=== PATIENT | male | born 1965 | race Two or more races ===

== ENCOUNTER → 2022-03-09 | Outpatient (CLI) | payer MEDICAID ==
[2022-03-09 13:19] LABS: Basophils # (auto) 0 10 ^3/uL (0-0.2); Basophils % (auto) 0.3 % (0.0-2.0); Eosinophils # (auto) 0.1 10 ^3/uL (0-0.8); Eosinophils % (auto) 1.3 % (0.0-7.0); Hematocrit 49.2 % (41.0-53.0); Hemoglobin 16.8 g/dL (13.5-17.5); Lymphocytes % (auto) 23.6 % (10.0-50.0); Mean Corpuscular Hemoglobin 31.5 pg (28.0-32.0); Mean Corpuscular Hgb Conc. 34.1 g/dL (32.0-36.0); Mean Corpuscular Volume 92.2 fL (80.0-100.0); Monocytes # (auto) 0.5 10 ^3/uL (0-1.3); Monocytes % (auto) 6.2 % (0.0-12.0); Neutrophils # (auto) 5.9 10 ^3/uL (1.6-8.6); Neutrophils % (auto) 68.6 % (37.0-80.0); Nucleated Red Blood Cells % 0.1 %; Red Blood Cells 5.34 10^6/uL (4.5-5.90); Red Cell Distribution Width 15.5 % (11.8-14.3); Urine Bacteria FEW /hpf (None Seen); Urine WBC 1 /hpf (0 - 3); White Blood Cell 8.7 10^3/uL (4.4-10.8)
[2022-03-09 13:24] LABS: Urine Blood 1+ /uL (Negative); Urine Specific Gravity 1.015 (1.001-1.035)
[2022-03-09 14:00] LABS: Potassium 4.6 mmol/L (3.5-5.1)
[2022-03-09 14:07] LABS: Albumin 3.8 g/dL (3.4-5.0); BUN/Creatinine Ratio 15.4; Bilirubin, Total 0.9 mg/dL (0.2-1.0); Calcium 9.5 mg/dL (8.5-10.1); Total Protein 7.4 g/dL (6.4-8.2); Uric Acid 4.4 mg/dL (3.5-7.2)
== END | disposition home or self-care (01) ==
LOC: LAB 12:55
PROVIDERS: ATTEND Internal Medicine
DX: I10 Essential (primary) hypertension (principal); E78.5 Hyperlipidemia, unspecified; M10.9 Gout, unspecified
CPT/HCPCS: 36415; 80053; 80061; 81001; 82043; 83036; 84439; 84443; 84550; 85025; 86803

== ENCOUNTER → 2022-06-20 | Outpatient (CLI) | payer MEDICAID ==
[2022-06-20 14:13] LABS: Calcium 9.4 mg/dL (8.5-10.1)
[2022-06-20 14:18] LABS: BUN/Creatinine Ratio 12.2; Bilirubin, Total 1.3 mg/dL (0.2-1.0); Total Protein 7.6 g/dL (6.4-8.2)
[2022-06-20 14:52] LABS: Urine Bacteria FEW /hpf (None Seen); Urine Blood TRACE /uL (Negative); Urine Specific Gravity 1.018 (1.001-1.035); Urine WBC 1 /hpf (0 - 3)
[2022-06-20 15:21] LABS: Basophils # (auto) 0 10 ^3/uL (0-0.2); Basophils % (auto) 0.5 % (0.0-2.0); Eosinophils # (auto) 0.1 10 ^3/uL (0-0.8); Eosinophils % (auto) 1.3 % (0.0-7.0); Hematocrit 44.1 % (41.0-53.0); Hemoglobin 15.6 g/dL (13.5-17.5); Lymphocytes # (auto) 1.9 10 ^3/uL (0.4-5.4); Lymphocytes % (auto) 30.9 % (10.0-50.0); Mean Corpuscular Hemoglobin 33.1 pg (28.0-32.0); Mean Corpuscular Hgb Conc. 35.4 g/dL (32.0-36.0); Mean Corpuscular Volume 93.4 fL (80.0-100.0); Monocytes # (auto) 0.5 10 ^3/uL (0-1.3); Monocytes % (auto) 7.6 % (0.0-12.0); Neutrophils # (auto) 3.6 10 ^3/uL (1.6-8.6); Neutrophils % (auto) 59.7 % (37.0-80.0); Nucleated Red Blood Cells % 0.1 %; Red Blood Cells 4.73 10^6/uL (4.5-5.90); Red Cell Distribution Width 14.5 % (11.8-14.3); White Blood Cell 6.1 10^3/uL (4.4-10.8)
== END | disposition home or self-care (01) ==
LOC: LAB 13:30
PROVIDERS: ATTEND Internal Medicine
DX: I12.9 Hypertensive chronic kidney disease with stage 1 through stage 4 chronic kidney disease, or unspecified chronic kidney disease (principal); N18.2 Chronic kidney disease, stage 2 (mild); R73.03 Prediabetes; E78.5 Hyperlipidemia, unspecified
CPT/HCPCS: 36415; 80053; 80061; 81001; 82570; 83036; 85025

== ENCOUNTER 2022-12-08 20:06 | Emergency (ER) | payer MEDICAID, OTHER ==
[~2022-12-08] VITALS: Ht 172.7 cm; Wt 113.9 kg
[2022-12-08 22:27] VITALS: BP 133/77; PULSE 82; RESP 18; TEMP 98; O2SAT 96
[2022-12-08] MEDS ORDERED: IBUP-1455 PO ×2 (22:42)
[2022-12-08] MEDS ORDERED: ACET650T12 PO (23:06)
== END 2022-12-08 23:19 | disposition home or self-care (01) ==
LOC: ER 20:06
DX: M79.631 Pain in right forearm (principal); I10 Essential (primary) hypertension; E78.5 Hyperlipidemia, unspecified; M10.9 Gout, unspecified; Z79.899 Other long term (current) drug therapy
CPT/HCPCS: 73090

== ENCOUNTER 2023-12-02 10:40 | Inpatient (IN) | payer MEDICAID ==
[~2023-12-02] VITALS: Ht 170.2 cm; Wt 118.2 kg
[~2023-12-02 10:40] MED LIST: ACET650T12 PO
[2023-12-02 11:48] LABS: Urine Bacteria None Seen /hpf (None Seen); Urine WBC None Seen /hpf (0 - 3)
[2023-12-02 11:52] LABS: Basophils # (auto) 0 10 ^3/uL (0-0.2); Basophils % (auto) 0.2 % (0.0-2.0); Eosinophils # (auto) 0.1 10 ^3/uL (0-0.8); Eosinophils % (auto) 0.7 % (0.0-7.0); Hematocrit 43.2 % (41.0-53.0); Hemoglobin 14.8 g/dL (13.5-17.5); Lymphocytes # (auto) 1.6 10 ^3/uL (0.4-5.4); Mean Corpuscular Hgb Conc. 34.3 g/dL (32.0-36.0); Mean Corpuscular Volume 93.3 fL (80.0-100.0); Neutrophils # (auto) 7.1 10 ^3/uL (1.6-8.6); Neutrophils % (auto) 73.1 % (37.0-80.0); Nucleated Red Blood Cells % 0.1 %; Red Blood Cells 4.64 10^6/uL (4.5-5.90); Red Cell Distribution Width 14.7 % (11.8-14.3); White Blood Cell 9.7 10^3/uL (4.4-10.8)
[2023-12-02 12:09] LABS: Alanine Aminotransferase 30 U/L (7-40); Albumin 4.5 g/dL (3.2-4.8); Alkaline Phosphatase 131 U/L (46-116); Anion Gap 8 (5-15); Aspartate Aminotransferase 15 U/L (13-40); Blood Urea Nitrogen 20 mg/dL (9-23); Carbon Dioxide 26 mmol/L (20-30); Chloride 103 mmol/L (98-107); Glucose 107 mg/dL (74-106); Potassium 4.9 mmol/L (3.5-5.1); Sodium 137 mmol/L (136-145)
[2023-12-02 12:10] LABS: Bilirubin, Total 0.9 mg/dL (0.2-1.0); Total Protein 7.2 g/dL (5.7-8.2)
[2023-12-02 12:12] LABS: Urine Blood 1+ /uL (Negative); Urine Clarity Clear (Clear); Urine Color Light-Yellow (Yellow); Urine Protein, UAD Negative (Negative); Urine Specific Gravity 1.017 (1.001-1.035); Urine Urobilinogen Normal (Negative)
[2023-12-02] MEDS ORDERED: CIPROFLOXACIN 400MG/200ML 200 ML IV ONE (12:45)
[2023-12-02 12:50] VITALS: PULSE 74; RESP 16; O2SAT 97
[2023-12-02] MEDS: cefTRIAXone 1GM/50ML D5W 50 ML IV ONE (13:00)
[2023-12-02] MEDS: SODIUM CHLORIDE 0.9% 500 ML IV ONE (13:00)
[2023-12-02] MEDS: KETOROLAC TROMETH 30 MG/ML 1ML VIAL IV ONE (13:01)
[2023-12-02] MEDS: metroNIDAZOLE 500MG/100ML 100 ML IV ONE (13:56)
[2023-12-02] MEDS ORDERED: ONDANSETRON HCL 4 MG/2 ML VIAL IV PRN (16:15)
[2023-12-02] MEDS ORDERED: MORPHINE SULFATE INJ 2 MG/ml SYRG IV PRN (16:15)
[2023-12-02] MEDS ORDERED: ACETAMINOPHEN 325 MG TAB PO PRN (16:15)
[2023-12-02] MEDS: HYDROcodone-ACET 5/325MG TAB PO PRN (17:37)
[2023-12-02 20:00] VITALS: PULSE 66; RESP 20; O2SAT 96
[2023-12-02 21:00] VITALS: BP 105/71; PULSE 94; RESP 19; TEMP 97.6; O2SAT 94
[2023-12-02] MEDS: metroNIDAZOLE 500MG/100ML 100 ML IV SCH (21:58)
[2023-12-03 01:00] VITALS: BP 114/70; PULSE 86; RESP 20; TEMP 98; O2SAT 96
[2023-12-03 05:00] VITALS: BP 114/68; PULSE 78; RESP 20; TEMP 97.9; O2SAT 97
[2023-12-03 06:14] LABS: Chloride 104 mmol/L (98-107); Potassium 4.6 mmol/L (3.5-5.1); Sodium 138 mmol/L (136-145)
[2023-12-03 06:15] LABS: Anion Gap 8 (5-15); Calcium 9.2 mg/dL (8.7-10.4); Carbon Dioxide 26 mmol/L (20-30)
[2023-12-03 06:17] LABS: Basophils # (auto) 0 10 ^3/uL (0-0.2); Basophils % (auto) 0.4 % (0.0-2.0); Eosinophils # (auto) 0.1 10 ^3/uL (0-0.8); Eosinophils % (auto) 1.3 % (0.0-7.0); Hematocrit 38.4 % (41.0-53.0); Hemoglobin 13.5 g/dL (13.5-17.5); Lymphocytes # (auto) 1.6 10 ^3/uL (0.4-5.4); Lymphocytes % (auto) 21.6 % (10.0-50.0); Mean Corpuscular Hemoglobin 32.6 pg (28.0-32.0); Mean Corpuscular Hgb Conc. 35.2 g/dL (32.0-36.0); Mean Corpuscular Volume 92.5 fL (80.0-100.0); Monocytes # (auto) 0.6 10 ^3/uL (0-1.3); Monocytes % (auto) 8.6 % (0.0-12.0); Neutrophils % (auto) 68.1 % (37.0-80.0); Nucleated Red Blood Cells % 0.1 %; Red Blood Cells 4.15 10^6/uL (4.5-5.90); White Blood Cell 7.4 10^3/uL (4.4-10.8)
[2023-12-03 06:20] LABS: BUN/Creatinine Ratio 13.4 (10.0-20.0); Blood Urea Nitrogen 17 mg/dL (9-23); Glucose 91 mg/dL (74-106)
[2023-12-03 08:45] VITALS: BP 104/60; PULSE 70; RESP 17; TEMP 97.4; O2SAT 97
[2023-12-03] MEDS: cefTRIAXone 1GM/50ML D5W 50 ML IV SCH (10:03)
[2023-12-03 13:00] VITALS: BP 106/68; PULSE 78; RESP 17; TEMP 97.5; O2SAT 93
[2023-12-03 16:17] VITALS: BP 106/68; PULSE 58; RESP 16; TEMP 97.7; O2SAT 97
[2023-12-03] MEDS ORDERED: ASPI-325 PO (16:57)
[2023-12-03] MEDS ORDERED: EZET-10 PO (16:57)
[2023-12-03] MEDS ORDERED: AMLO1TAB23 PO (16:57)
[2023-12-03] MEDS ORDERED: ATOR40TA52 PO (16:57)
[2023-12-03] MEDS ORDERED: LISI40TA16 PO (16:57)
[2023-12-03] MEDS ORDERED: ALLO300T2 PO (16:57)
[2023-12-03 21:04] VITALS: BP 118/71; PULSE 84; RESP 20; TEMP 97.8; O2SAT 94
[2023-12-03] MEDS: ATORVASTATIN 20 MG TAB PO SCH (21:53)
[2023-12-04 01:06] VITALS: BP 120/70; PULSE 77; RESP 21; TEMP 97.6; O2SAT 98
[2023-12-04 05:00] VITALS: BP 112/73; PULSE 79; RESP 20; TEMP 97.8; O2SAT 95
[2023-12-04 06:44] LABS: Basophils # (auto) 0 10 ^3/uL (0-0.2); Basophils % (auto) 0.5 % (0.0-2.0); Eosinophils # (auto) 0.1 10 ^3/uL (0-0.8); Eosinophils % (auto) 2.4 % (0.0-7.0); Hematocrit 38.5 % (41.0-53.0); Hemoglobin 13.5 g/dL (13.5-17.5); Lymphocytes # (auto) 1.6 10 ^3/uL (0.4-5.4); Mean Corpuscular Hemoglobin 32.2 pg (28.0-32.0); Mean Corpuscular Hgb Conc. 35.1 g/dL (32.0-36.0); Mean Corpuscular Volume 91.7 fL (80.0-100.0); Monocytes # (auto) 0.5 10 ^3/uL (0-1.3); Monocytes % (auto) 8.3 % (0.0-12.0); Neutrophils # (auto) 3.2 10 ^3/uL (1.6-8.6); Neutrophils % (auto) 59.8 % (37.0-80.0); Nucleated Red Blood Cells % 0.2 %; Red Cell Distribution Width 14.7 % (11.8-14.3); White Blood Cell 5.4 10^3/uL (4.4-10.8)
[2023-12-04 06:52] LABS: Anion Gap 8 (5-15); Carbon Dioxide 27 mmol/L (20-30); Chloride 103 mmol/L (98-107); Potassium 4.2 mmol/L (3.5-5.1); Sodium 138 mmol/L (136-145)
[2023-12-04 06:53] LABS: Calcium 9.2 mg/dL (8.7-10.4)
[2023-12-04 06:58] LABS: BUN/Creatinine Ratio 10.4 (10.0-20.0); Blood Urea Nitrogen 12 mg/dL (9-23); Glucose 91 mg/dL (74-106)
[2023-12-04 08:57] VITALS: BP 114/78; PULSE 77; RESP 16; TEMP 98.3; O2SAT 93
[2023-12-04] MEDS: ASPirin 81 mg TAB PO SCH (09:34)
[2023-12-04] MEDS: ALLOPURINOL 100 MG TAB PO SCH (09:34)
[2023-12-04] MEDS: LISINOPRIL 20 MG TAB PO SCH (09:36)
[2023-12-04] MEDS: amLODIPine BESYLATE 5 MG TAB PO SCH (09:36)
[2023-12-04 12:54] VITALS: BP 104/68; PULSE 71; RESP 18; TEMP 98.4; O2SAT 95
[2023-12-04] MEDS ORDERED: CIPR-173 PO (14:09)
[2023-12-04] MEDS ORDERED: METR-344 PO (14:09)
[2023-12-04 17:06] VITALS: BP 113/68; PULSE 75; RESP 18; TEMP 98.6; O2SAT 95
== END 2023-12-04 17:00 | disposition home or self-care (01) | DRG 244 ==
LOC: ER 10:40 → OVERFLOW 16:14 → EAST 17:00
PROVIDERS: ADMIT Internal Medicine Geriatric Medicine; ATTEND Emergency Medicine
DX: K57.92 Diverticulitis of intestine, part unspecified, without perforation or abscess without bleeding (principal); N17.0 Acute kidney failure with tubular necrosis; E78.5 Hyperlipidemia, unspecified; M10.9 Gout, unspecified; K44.9 Diaphragmatic hernia without obstruction or gangrene; I12.9 Hypertensive chronic kidney disease with stage 1 through stage 4 chronic kidney disease, or unspecified chronic kidney disease; N18.2 Chronic kidney disease, stage 2 (mild); Z79.1 Long term (current) use of non-steroidal anti-inflammatories (NSAID); Z87.19 Personal history of other diseases of the digestive system; Z79.899 Other long term (current) drug therapy
CPT/HCPCS: 36415; 74176; 80048; 80053; 81001; 83605; 85025; 96365; 96367; 96375; G0378; J1885; J3490

== ENCOUNTER → 2024-01-24 | Outpatient (CLI) | payer MEDICAID ==
[~2024-01-24] MED LIST changes: -ACET650T12 PO; +ALLO300T2 PO; +AMLO1TAB23 PO; +ASPI-325 PO; +ATOR40TA52 PO; +CIPR-173 PO; +EZET-10 PO; +LISI40TA16 PO; +METR-344 PO
[2024-01-24 12:29] LABS: Urine Bacteria None Seen /hpf (None Seen)
[2024-01-24 12:55] LABS: Urine Blood Negative /uL (Negative); Urine Clarity Clear (Clear); Urine Color Yellow (Yellow); Urine Hyaline Cast FEW /lpf (0 - 2); Urine Mucus FEW (None Seen); Urine Protein, UAD TRACE (Negative); Urine Specific Gravity 1.021 (1.001-1.035); Urine Urobilinogen Normal (Negative); Urine WBC <1 /hpf (0 - 3); Urine pH 5.5 (5.0-9.0)
== END | disposition home or self-care (01) ==
LOC: LAB 12:26
PROVIDERS: ATTEND Internal Medicine
DX: R82.90 Unspecified abnormal findings in urine (principal)
CPT/HCPCS: 81001

== ENCOUNTER → 2024-04-17 | Outpatient (CLI) | payer MEDICAID ==
[2024-04-17 13:03] LABS: Urine Bacteria None Seen /hpf (None Seen)
[2024-04-17 13:11] LABS: Urine Blood TRACE /uL (Negative); Urine Clarity Clear (Clear); Urine Color Light-Yellow (Yellow); Urine Protein, UAD Negative (Negative); Urine Specific Gravity 1.009 (1.001-1.035); Urine Urobilinogen Normal (Negative); Urine WBC 1 /hpf (0 - 3); Urine pH 5.5 (5.0-9.0)
[2024-04-17 13:45] LABS: Prostate Specific Antigen 0.89 ng/mL (0.0-4.0)
[2024-04-17 13:48] LABS: Free T3 3.88 pg/mL (2.3-4.2)
[2024-04-17 13:49] LABS: Free T4 (Free Thyroxine) 1.13 ng/dL (0.89-1.76)
== END | disposition home or self-care (01) ==
LOC: LAB 12:53
PROVIDERS: ATTEND Internal Medicine
DX: I12.9 Hypertensive chronic kidney disease with stage 1 through stage 4 chronic kidney disease, or unspecified chronic kidney disease (principal); N18.2 Chronic kidney disease, stage 2 (mild); Z87.19 Personal history of other diseases of the digestive system; Z86.0101 Personal history of adenomatous and serrated colon polyps
CPT/HCPCS: 36415; 81001; 84153; 84439; 84443; 84481

== ENCOUNTER → 2024-05-29 | Outpatient (CLI) | payer MEDICAID ==
[2024-05-29 10:16] LABS: Chloride 105 mmol/L (98-107); Potassium 4.5 mmol/L (3.5-5.1); Sodium 138 mmol/L (136-145)
[2024-05-29 10:17] LABS: Anion Gap 4 (5-15); Calcium 10.2 mg/dL (8.7-10.4); Carbon Dioxide 29 mmol/L (20-31)
[2024-05-29 10:22] LABS: BUN/Creatinine Ratio 11.5 (10.0-20.0); Blood Urea Nitrogen 15 mg/dL (9-23); Glucose 105 mg/dL (74-106)
== END | disposition home or self-care (01) ==
LOC: LAB 09:14
PROVIDERS: ATTEND Internal Medicine
DX: I12.9 Hypertensive chronic kidney disease with stage 1 through stage 4 chronic kidney disease, or unspecified chronic kidney disease (principal); N18.2 Chronic kidney disease, stage 2 (mild)
CPT/HCPCS: 36415; 80048

== ENCOUNTER 2024-06-28 07:25 | Day surgery (SDC) | payer MEDICAID ==
[2024-06-25 15:32] LABS: Urine Bacteria None Seen /hpf (None Seen)
[2024-06-25 15:37] LABS: Basophils # (auto) 0.1 10 ^3/uL (0-0.2); Basophils % (auto) 0.7 % (0.0-2.0); Eosinophils # (auto) 0.2 10 ^3/uL (0-0.8); Eosinophils % (auto) 2.5 % (0.0-7.0); Hematocrit 46.8 % (41.0-53.0); Hemoglobin 15.6 g/dL (13.5-17.5); Lymphocytes % (auto) 23.1 % (10.0-50.0); Mean Corpuscular Hemoglobin 30.7 pg (28.0-32.0); Mean Corpuscular Hgb Conc. 33.3 g/dL (32.0-36.0); Mean Corpuscular Volume 92.3 fL (80.0-100.0); Monocytes # (auto) 0.7 10 ^3/uL (0-1.3); Monocytes % (auto) 8.4 % (0.0-12.0); Neutrophils # (auto) 5.6 10 ^3/uL (1.6-8.6); Neutrophils % (auto) 65.3 % (37.0-80.0); Platelet Count (auto) 257 10^3/uL (140-450); Red Blood Cells 5.08 10^6/uL (4.5-5.90); Red Cell Distribution Width 14.1 % (11.8-14.3); White Blood Cell 8.6 10^3/uL (4.4-10.8)
[2024-06-25 15:43] LABS: Urine Blood Negative /uL (Negative); Urine Clarity Clear (Clear); Urine Color Light-Yellow (Yellow); Urine Protein, UAD Negative (Negative); Urine Specific Gravity 1.012 (1.001-1.035); Urine Squamous Epithelial Cell None Seen /hpf (<5); Urine Urobilinogen Normal (Negative)
[2024-06-25 15:51] LABS: INR 0.97 (0.9-1.15); Partial Thromboplastin Time 29.5 SEC (24.5-34.5); Prothrombin Time 10.3 sec (9.3-11.8)
[2024-06-25 16:23] LABS: Alanine Aminotransferase 38 U/L (7-40); Albumin 4.7 g/dL (3.2-4.8); Anion Gap 7 (5-15); Aspartate Aminotransferase 26 U/L (13-40); BUN/Creatinine Ratio 9.2 (10.0-20.0); Bilirubin, Total 0.9 mg/dL (0.2-1.0); Blood Urea Nitrogen 11 mg/dL (9-23); Calcium 10.3 mg/dL (8.7-10.4); Carbon Dioxide 29 mmol/L (20-31); Chloride 103 mmol/L (98-107); Glucose 101 mg/dL (74-106); Potassium 4.4 mmol/L (3.5-5.1); Sodium 139 mmol/L (136-145)
[2024-06-25 16:24] LABS: Total Protein 6.8 g/dL (5.7-8.2)
[2024-06-25 16:32] LABS: Alkaline Phosphatase 135 U/L (46-116)
[~2024-06-28] VITALS: Ht 170.2 cm; Wt 117.9 kg
[~2024-06-28 07:25] MED LIST changes: -CIPR-173 PO; -METR-344 PO; +OMEG-20 PO
[2024-06-28] MEDS ORDERED: ONDANSETRON HCL 4 MG/2 ML VIAL ONE (08:57)
[2024-06-28] MEDS ORDERED: PROPOFOL 10 MG/ML 20 ML IV ONE (08:57)
[2024-06-28] MEDS ORDERED: GLYCOPYRROLATE 0.2 MG/ML 1ML VIAL ONE (08:57)
[2024-06-28] MEDS ORDERED: fentaNYL CITRATE 100 MCG/2 ML VL ONE (08:57)
[2024-06-28] MEDS ORDERED: MIDAZOLAM HCL 2MG/2ML 2ml VIAL (1mg/ml) ONE (08:57)
[2024-06-28] MEDS ORDERED: LIDOCAINE 2% (LOCAL ANESTH.) PF 5ml SDV ONE (08:57)
[2024-06-28] MEDS ORDERED: KETAMINE 50mg/ML 1ml syringe ONE ×2 (10:04→11:17)
[2024-06-28 10:25] VITALS: PULSE 100; RESP 15; TEMP 97.7; O2SAT 96
[2024-06-28 10:42] VITALS: PULSE 89; RESP 18; O2SAT 96
[2024-06-28 11:05] VITALS: PULSE 92; RESP 17; O2SAT 95
[2024-06-28 11:20] VITALS: BP 122/76; PULSE 90; RESP 15; O2SAT 95
--- NOTE | 2024-06-28 18:40 | DVHOP2 ---
Operative Report DATE OF OPERATION: 06/28/24 PROCEDURE: Upper Endoscopy with biopsy and dilate esophagus unguided. PREOPERATIVE INDICATION: The patient is a 59 -year-old male undergoing endoscopy for chronic GERD and some dysphagia POSTOPERATIVE DIAGNOSES: 1. Patient had a 3 cm sliding-type hiatal hernia with a Schatzki's ring that was dilated with Burciaga number 48 2. Mild gastroduodenitis otherwise normal examination up to the 2nd part of the duodenum PROCEDURE PERFORMED BY: Carlos Florentino GI NURSE: Alicia SCOPE: Olympus videoendoscope. ASA CLASS: 3. PREOPERATIVE MEDICATIONS: Mac sedation, Dr. Saldana PROCEDURE IN DETAIL: After obtaining an informed consent, the patient was placed on left lateral decubitus position. The patient was then sedated with the above medications. A bite block was placed between his teeth. The endoscope was then passed through the oropharynx, into the esophagus, and through the stomach and pylorus up to the second and third part of the duodenum. The endoscope was then withdrawn. The 2nd and 3rd part of the duodenum were normal.and the duodenal bulb showed duodenitis Duodenal biopsies were obtained Pre-pyloric area and antrum showed mild antral gastritis. Gastric biopsies were obtained. On retroflexion the fundus cardia and angularis were normal. The endoscope was then withdrawn into the distal esophagus Patient had a 2-3 cm sliding-type hiatal hernia with a Schatzki's ring. The remaining distal and proximal esophagus were unremarkable Subsequently a Burciaga dilator number 48 was passed through the distal esophagus with minimal resistance. Repeat endoscopy confirmed adequate dilatation there was minimal mucosal separation. GE junction biopsies were obtained There was no bleeding. The patient tolerated the procedure well without difficulty. COMPLICATIONS : None SPECIMENS: Duodenal biopsies Gastric biopsies GE junction biopsies DISPOSITION: Stable D/C to home PLAN: 1. Await for biopsy result 2. Will place pt on Protonix 40 mg bid 3. Resume full liquid diet advance to soft mechanical 4. DC aspirin NSAIDs smoking alcohol for one week 5. Outpatient follow up with me in 2-4 weeks to review results and discuss further management CARLOS FLORENTINO MD Jun 28, 2024 18:40
--- NOTE | 2024-06-28 18:45 | DVHOP2 ---
Operative Report DATE OF OPERATION: 06/28/24 PROCEDURE: Colonoscopy with hot snare polypectomy and cold biopsy. PREOPERATIVE INDICATION: The patient is a 59 -year-old male undergoing colonoscopy for surveillance with personal history of colon polyps POSTOPERATIVE DIAGNOSES: 1. There was area of ulceration over the ileocecal valve and also the proximal ascending colon which was suspicious for either stercoral ulceration or likely a segmental ischemic colitis 2. Patient had a 1 cm ascending colon polyp that was seen and removed by snare polypectomy and the specimens were retrieved 3. Patient had a 1 cm descending colon polyp that was seen and removed by snare polypectomy and the specimens were retrieved 4. There were a couple of small benign-appearing rectosigmoid polyps that were seen and removed by snare polypectomy and the specimens were retrieved 5. Trace internal hemorrhoids otherwise essentially completely normal colonoscopy examination up to the cecum PROCEDURE PERFORMED BY: Carlos Mcconnell M.D. SCOPE: Olympus videocolonoscope. ASA CLASS: 3. PREOPERATIVE MEDICATIONS: Dr. Les Montemayor PROCEDURE IN DETAIL: After obtaining an informed consent, the patient was placed on left lateral decubitus position. He was then sedated with the above medications. A rectal examination was performed that was normal. The colonoscope was then passed through the anus into the rectosigmoid and through the descending, transverse, and ascending colon up to the cecum with visualization of the appendiceal orifice, base of the cecum and the ile ocecal valve. The colonoscope was then withdrawn. Patient had an area of extensive ulceration of the ileocecal valve and some in the proximal ascending colon Multiple biopsies were obtained. This appeared to be likely related to ischemic colitis or stercoral colitis. There was a 1 cm benign-appearing ascending colon polyp that was seen and removed by hot snare polypectomy There was a 1 cm benign-appearing descending colon polyp that was seen and removed by hot snare polypectomy There were two or three benign-appearing rectosigmoid polyps that were seen and removed by hot snare polypectomy or by cold biopsy forceps On retroflexion and straight on view the patient had trace internal hemorrhoids. The patient tolerated the procedure well without difficulty. WITHDRAWAL TIME: 14 minutes QUALITY OF THE PREP: Ashley Bowel Prep score: 9. COMPLICATIONS : None SPECIMENS: Biopsy of ileocecal valve and proximal ascending colon Ascending colon polyp Descending colon polyp Rectosigmoid polyps DISPOSITION: Stable D/C to home PLAN: 1. Repeat colonoscopy base on biopsy result likely in 2-3 years 2. Resume GI soft diet advance as tolerated 3. Increase fluid and fiber intake 4. DC aspirin NSAIDs smoking alcohol 5. Outpatient follow up with me in 4-6 weeks to review results and discuss further management CARLOS MCCONNELL MD Jun 28, 2024 18:45
== END 2024-06-28 12:12 | disposition home or self-care (01) ==
LOC: GI 07:25
PROVIDERS: ATTEND Internal Medicine Gastroenterology
DX: Z12.11 Encounter for screening for malignant neoplasm of colon (principal); D12.2 Benign neoplasm of ascending colon; D12.5 Benign neoplasm of sigmoid colon; D12.4 Benign neoplasm of descending colon; R13.19 Other dysphagia; K22.2 Esophageal obstruction; K44.9 Diaphragmatic hernia without obstruction or gangrene; K64.8 Other hemorrhoids; K21.00 Gastro-esophageal reflux disease with esophagitis, without bleeding; K29.50 Unspecified chronic gastritis without bleeding; F17.200 Nicotine dependence, unspecified, uncomplicated; Z86.0100 Personal history of colon polyps, unspecified; N18.9 Chronic kidney disease, unspecified; Z86.73 Personal history of transient ischemic attack (TIA), and cerebral infarction without residual deficits; M10.9 Gout, unspecified; Z98.890 Other specified postprocedural states
CPT/HCPCS: 36415; 43239; 43450; 45380; 45385; 80053; 81001; 85025; 85610; 85730; 88305; 88312; 88342; J2003; J2250; J2405; J2704; J3010; J7030

== ENCOUNTER 2024-07-11 09:03 | Inpatient (IN) | payer MEDICAID ==
[2024-07-10 14:30] LABS: Urine Bacteria None Seen /hpf (None Seen)
[2024-07-10 14:34] LABS: Basophils # (auto) 0 10 ^3/uL (0-0.2); Basophils % (auto) 0.3 % (0.0-2.0); Eosinophils # (auto) 0.2 10 ^3/uL (0-0.8); Eosinophils % (auto) 1.9 % (0.0-7.0); Hematocrit 46.3 % (41.0-53.0); Hemoglobin 15.5 g/dL (13.5-17.5); Lymphocytes # (auto) 1.9 10 ^3/uL (0.4-5.4); Lymphocytes % (auto) 18.2 % (10.0-50.0); Mean Corpuscular Hemoglobin 30.8 pg (28.0-32.0); Mean Corpuscular Hgb Conc. 33.4 g/dL (32.0-36.0); Mean Corpuscular Volume 92.1 fL (80.0-100.0); Monocytes # (auto) 0.7 10 ^3/uL (0-1.3); Monocytes % (auto) 6.3 % (0.0-12.0); Neutrophils # (auto) 7.8 10 ^3/uL (1.6-8.6); Neutrophils % (auto) 73.3 % (37.0-80.0); Platelet Count (auto) 281 10^3/uL (140-450); Red Blood Cells 5.03 10^6/uL (4.5-5.90); Red Cell Distribution Width 14.5 % (11.8-14.3); White Blood Cell 10.7 10^3/uL (4.4-10.8)
[2024-07-10 14:37] LABS: Urine Blood TRACE /uL (Negative); Urine Clarity Clear (Clear); Urine Color Light-Yellow (Yellow); Urine Protein, UAD Negative (Negative); Urine Specific Gravity 1.011 (1.001-1.035); Urine Squamous Epithelial Cell None Seen /hpf (<5); Urine Urobilinogen Normal (Negative); Urine WBC < 1 /HPF (0-3); Urine pH 5.5 (5.0-9.0)
[2024-07-10 14:49] LABS: INR 0.99 (0.9-1.15); Partial Thromboplastin Time 29.6 SEC (24.5-34.5); Prothrombin Time 10.5 sec (9.3-11.8)
[2024-07-10 15:07] LABS: Alanine Aminotransferase 35 U/L (7-40); Albumin 4.6 g/dL (3.2-4.8); Anion Gap 10 (5-15); Aspartate Aminotransferase 22 U/L (13-40); BUN/Creatinine Ratio 10.6 (10.0-20.0); Blood Urea Nitrogen 14 mg/dL (9-23); Calcium 10.2 mg/dL (8.7-10.4); Carbon Dioxide 27 mmol/L (20-31); Chloride 102 mmol/L (98-107); Potassium 4.3 mmol/L (3.5-5.1); Sodium 139 mmol/L (136-145); Total Protein 6.8 g/dL (5.7-8.2)
[2024-07-10 15:09] LABS: Alkaline Phosphatase 139 U/L (46-116); Glucose 144 mg/dL (74-106)
[~2024-07-11] VITALS: Ht 170.2 cm; Wt 123.0 kg
[2024-07-11] MEDS ORDERED: PROPOFOL 10 MG/ML 20 ML IV ONE ×3 (09:28→10:33)
[2024-07-11] MEDS ORDERED: GLYCOPYRROLATE 0.2 MG/ML 1ML VIAL ONE (09:28)
[2024-07-11] MEDS ORDERED: LIDOCAINE 2% (LOCAL ANESTH.) PF 5ml SDV ONE (09:28)
[2024-07-11] MEDS ORDERED: DexAMETHasone SOD PHOS 10MG/1ML VIAL INJ ONE (09:28)
[2024-07-11] MEDS ORDERED: KETOROLAC TROMETH 30 MG/ML 1ML VIAL ONE (09:28)
[2024-07-11] MEDS ORDERED: ONDANSETRON HCL 4 MG/2 ML VIAL ONE (09:28)
[2024-07-11] MEDS ORDERED: CIPROFLOXACIN 400MG/200ML 200 ML IV ONE (09:35)
--- NOTE | 2024-07-11 10:16 | DVHDS2 ---
New Physician D'charge PN Admitting Diagnosis Admitting Diagnosis BPH Discharge Diagnosis Same Operations or Procedures UroLift prostate implantation Reason(s) For Hospitalization Surgery Hospital Course Patient was brought to the operating room. After administration of anesthesia, he was placed in the lithotomy position. The area of genitalia was prepped and draped in standard surgical and sterile fashion. The 20 F access sheath was introduced into the bladder under direct vision. Bladder was emptied and the Urolift device was introduced. Five implants were permanently placed at the 10 a& 2 O'clock positions near the bladder neck and apical tissue to lift the kissing lateral lobes out of the way and to create a channel in the prostatic urethra and the urethral bladder neck opening. The implants were delivered through a needle that comes out of the Urolift delivery device and into the prostate. Patient tolerated the procedure well. He was awaken and taken to RR in stable condition. All instrument counts were correct at the end of the procedure. Treatment Plan Discharge Condition of Discharge Good Disposition Home Discharge Instructions Diet: Regular Activity: Light activity Activity comment: As tolerated Medications: Given Follow Up Care Follow Up/Referral: Two weeks follow up Discharge Statement: "Patient was advised to return to the ER or call 911 if any headaches, dizziness, shortness of breath, chest pain, abdominal pain, bleeding, fevers, or worsening of medical condition. Patient was counseled about treatment plan, medications, possible side effects, patientverbalized understanding. All questions were answered to the best of my ability. This discharge took greater then 30 minutes in planning, reviewing documentation, counseling the patient, and discussing with other team members." MOSSE RAZO MD Jul 11, 2024 10:16
--- NOTE | 2024-07-11 10:16 | DVHOP2 ---
Operative Report - 2 Report Details Date: 07/11/24 Preop Diagnosis: BPH Postop Diagnosis: Same Surgeon: Moses Razo Anesthesiologist: Fermín [place] CRNA Anesthesia: Mac Consent: The patient was informed of the risks and benefits of the procedure. These include but are not limited to complications of anesthesia, postoperative infection, incomplete relief of symptoms, recurrence of symptoms, damage to blood vessels, nerves and tendons, deep venous thrombosis, pulmonary embolism and possible need for repeat surgery in the future. Indications for Surgery: Patient has symptomatic BPH and has elected to undergo UroLift implants Name of Procedure Performed UroLift prostate implantation Procedure Details Procedure Details: Patient was brought to the operating room. After administration of anesthesia, he was placed in the lithotomy position. The area of genitalia was prepped and draped in standard surgical and sterile fashion. The 20 F access sheath was introduced into the bladder under direct vision. Bladder was emptied and the Urolift device was introduced. 7 implants were permanently placed at the 10 a& 2 O'clock positions near the bladder neck and apical tissue to lift the kissing lateral lobes out of the way and to create a channel in the prostatic urethra and the urethral bladder neck opening. The implants were delivered through a needle that comes out of the Urolift delivery device and into the prostate. Patient tolerated the procedure well. He was awaken and taken to RR in stable condition. All instrument counts were correct at the end of the procedure. Specimen: None Condition Good Disposition Home MOSES RAZO MD Jul 11, 2024 10:16
[2024-07-11 10:49] VITALS: O2SAT 96
[2024-07-11] MEDS ORDERED: hydrALAZINE HCL 20 MG/ML VL IV PRN (11:00)
[2024-07-11] MEDS ORDERED: fentaNYL CITRATE 100 MCG/2 ML VL IV PRN (11:00)
[2024-07-11] MEDS ORDERED: NALOXONE HCL 0.4 MG/ML VIAL IV PRN (11:00)
[2024-07-11] MEDS ORDERED: FLUMAZENIL 0.1 MG/ML INJ 10ML MDV IV PRN (11:00)
[2024-07-11] MEDS ORDERED: ePHEDrine SULFATE 50 MG/ML AMP IV PRN (11:00)
[2024-07-11] MEDS: oxyCODONE HCL 5MG TAB PO PRN (12:53)
[2024-07-11] MEDS: HYDROmorphone HCL 2 MG/ML VL/or syr IV PRN (12:56)
[2024-07-11] MEDS: ONDANSETRON HCL 4 MG/2 ML VIAL IV PRN (14:17)
[2024-07-11] MEDS ORDERED: MORPHINE SULFATE INJ 2 MG/ml SYRG IV PRN ×2 (15:30→16:15)
[2024-07-11] MEDS ORDERED: NITROGLYCERIN 0.4 MG SL TAB SL PRN ×2 (15:30→16:15)
[2024-07-11 17:00] VITALS: BP 129/72; PULSE 93; RESP 18; TEMP 97.9; O2SAT 94
[2024-07-11 20:00] VITALS: RESP 16
[2024-07-11 21:00] VITALS: BP 132/76; PULSE 89; RESP 18; TEMP 99; O2SAT 95
[2024-07-12 01:00] VITALS: BP 130/70; PULSE 84; RESP 18; TEMP 98; O2SAT 97
[2024-07-12 05:00] VITALS: BP 143/75; PULSE 90; RESP 22; TEMP 97.6; O2SAT 95
[2024-07-12 08:00] VITALS: RESP 16
[2024-07-12 08:41] VITALS: BP 125/69; PULSE 92; RESP 19; TEMP 97.5; O2SAT 94
--- NOTE | 2024-07-12 09:01 | DVHDS2 ---
ASSESSMENT ASSESSMENT Hospital Course no pre intra or post op complications kept overnight for for CBI meeting discharge criteria POD 1 Assessment Same Problems: (1) BPH loc w urin obs/LUTS MIGUEL SHEN NP Jul 12, 2024 09:01
[2024-07-12 11:23] VITALS: BP 105/69; PULSE 88; RESP 17; TEMP 36.4; O2SAT 96
[2024-07-12 13:00] VITALS: BP 119/68; PULSE 88; RESP 17; TEMP 97.5; O2SAT 96
[2024-07-12] MEDS ORDERED: KETAMINE 50mg/ML 10ml Vial (500mg/10ml) IV ONE (13:54)
== END 2024-07-12 15:00 | disposition home or self-care (01) | DRG 501 ==
LOC: SUR 09:03 → OVERFLOW 15:27 → WEST WING 17:16
PROVIDERS: ADMIT Family Medicine; ATTEND Family Medicine
PROC: 0T7D8DZ Dilation of Urethra with Intraluminal Device, Via Natural or Artificial Opening Endoscopic (ICD-10-PCS; principal; 2024-07-11 09:58)
DX: N40.0 Benign prostatic hyperplasia without lower urinary tract symptoms (principal); R31.9 Hematuria, unspecified
CPT/HCPCS: 36415; 80053; 81001; 85025; 85610; 85730; 87086; 87088; 87186; G0378; J1100; J1885; J2003; J2405; J2704

== ENCOUNTER 2024-11-21 16:25 | Emergency (ER) | payer MEDICAID ==
[~2024-11-21] VITALS: Ht 170.2 cm; Wt 122.5 kg
[~2024-11-21 16:25] MED LIST changes: -ASPI-325 PO
--- NOTE | 2024-11-21 16:42 | ED.PDOC ---
History of Present Illness(SKN HPI Comments THIS IS A 59 YEAR OLD MALE PRESENTING TO THE ED WITH CHIEF COMPLAINT OF RASH TO BACK OF HEAD. PATIENT REPORTS THAT HE HAS BEEN EXPERIENCING A PAINFUL RASH TO THE BACK OF HIS HEAD FOR THE PAST 2 DAYS. PATIENT RELAYS THAT HE HAS HAD THIS PROBLEM FOR THE PAST FEW YEARS, RECURRING INTERMITTENTLY. PATIENT STATES THAT HE WAS TOLD BY DR. HILLIARD THAT IF IT RETURNS WITH PAIN, TO HAVE IT EVALUATED BY HIM FOR POSSIBLE REMOVAL. PATIENT DENIES ANY FEVER, CHILLS, DRAINAGE, OR BLEEDING. NO FURTHER SYMPTOMS OR CONCERNS DURING POINT OF CARE. Chief Complaint: SCALP RED BUMP Time Seen by MD: 16:38 Primary Care Provider: CHAGO History of Present Illness: Nurses Notes, Medications, Allergies Allergies: Coded Allergies: NO KNOWN ALLERGIES (Unverified , 12/08/22) Home Meds Active Scripts Acetaminophen (Tylenol Extra Strength Fo) 500 Mg Tab, 1000 MG PO BID, #30 TAB Prov:MATA CHRISTIANSEN 11/21/24 Cephalexin Monohydrate (Cephalexin) 500 Mg Cap, 2 CAP PO BID, #40 CAP Prov:MATA CHRISTIANSEN 11/21/24 Reported Medications Van Lear-3 Fatty Acids (FISH OIL) 1,000 Mg Cap, 1000 MG PO DAILY, CAP 06/25/24 Atorvastatin Calcium (ATORVASTATIN CALCIUM) 40 Mg Tab, 1 TAB PO DAILY 12/03/23 Allopurinol (Allopurinol) 300 Mg Tab, 1 TAB PO DAILY 12/03/23 Ezetimibe (Ezetimibe) 10 Mg Tab, 1 TAB PO DAILY 12/03/23 Lisinopril (Lisinopril) 40 Mg Tab, 1 TAB PO DAILY 12/03/23 Amlodipine Besylate (Amlodipine Besylate) 10 Mg Tab, 1 TAB PO DAILY 12/03/23 Information Source: Patient Mode of Arrival: Ambulatory Severity: Mild, Moderate Timing: Days Duration: Since onset Prehospital treatment: None Location: Head Mechanism: Spontaneous Onset Object: None Wound Type: Pustule Immunization Status of Animal: NA Tetanus: UTD, Unknown History of: Other (SKIN BUMP OF SCALP) Associated Signs and Symptoms: Redness, Pain Past Medical History PAST MEDICAL HISTORY: CKF, Gout, High Lipids, HTN Surgical History: Denies all surgeries Family History Family History: Reviewed,noncontributory to illness Social History Smoker: Non-Smoker Alcohol: Occasionally Drugs: Denies Drug Use Lives In: Home Constitutional: denies: chills, diaphoresis, fatigue, fever, malaise, sweats, weakness, others EENTM: denies: blurred vision, double vision, ear bleeding, ear discharge, ear drainage, ear pain, ear ringing, eye pain, eye redness, hearing loss, mouth pain, mouth swelling, nasal discharge, nose bleeding, nose congestion, nose pain, photophobia, tearing, throat pain, throat swelling, voice changes, others Respiratory: denies: cough, hemoptysis, orthopnea, SOB at rest, shortness of breath, SOB with excertion, stridor, wheezing, others Cardiovascular: denies: chest pain, dizzy spells, diaphoresis, Dyspnea on exertion, edema, irregular heart beat, left arm pain, lightheadedness, palpitations, PND, syncope, others Gastrointestinal: denies: abdomen distended, abdominal pain, blood streaked bowels, constipated, diarrhea, dysphagia, difficulty swallowing, hematemesis, melena, nausea, poor appetite, poor fluid intake, rectal bleeding, rectal pain, vomiting, others Genitourinary: denies: burning, dysuria, flank pain, frequency, hematuria, incontinence, penile discharge, penile sore, pain, testicle pain, testicle swelling, urgency, others Neurological: denies: dizziness, fainting, headache, left sided numbness, left sided weakness, numbness, paresthesia, pre-existing deficit, right sided numbness, right sided weakness, seizure, speech problems, tingling, tremors, weakness, others Musculoskeletal: denies: back pain, gout, joint pain, joint swelling, muscle pain, muscle stiffness, neck pain, others Integumetry: reports: lumps (BACK OF SCALP ); denies: bruises, change in color, change in hair/nails, dryness, laceration, rash, wounds, others Allergic/Immunocompromised: denies: Difficulty Healing, Frequent Infections, Hives, Itching, others Hematologic/Lymphatic: denies: anemia, blood clots, easy bleeding, easy bruising, swollen glands, others Endocrine: denies: excessive hunger, excessive sweating, excessive thirst, excessive urination, flushing, intolerance to cold, intolerance to heat, unexplained weight gain, unexplained weight loss, others Psychiatric: denies: anxiety, bipolar disorder, depression, hopeless, panic disorder, schizophrenia, sleepless, suicidal, others All Other Systems: Reviewed and Negative Physical Exam General Appearance: No Apparent Distress, Normal HEENT: Head (A RED BUMP ON BACK OF SCALP WITH TENDERNESS AND REDNESS, NO OPEN WOUND SEEN. ), Normal ENT Inspection, PERRL/EOMI, Pharynx Normal, TMs Normal Neck: Full Range of Motion, Non-Tender, Normal, Normal Inspection Respiratory: Chest Non-Tender, Lungs Clear, No Accessory Muscle Use, No Respiratory Distress, Normal Breath Sounds Cardiovascular: No Edema, No JVD, No Murmur, No Gallop, Normal Peripheral Pulses, Regular Rate/Rhythm Breast Exam: Deferred Gastrointestinal: No Organomegaly, Non Tender, No Pulsatile Mass, Normal Bowel Sounds, Soft Genitalia: Deferred Pelvic: Deferred Rectal: Deferred Extremities: No calf tenderness, Normal capillary refill, Normal inspection, Normal range of motion, Non-tender, No pedal edema Musculoskeletal : Apperance: Normal Neurologic: Alert, workers' compensation commissioner II-XII nml as Tested, No Motor Deficits, Normal Affect, Normal Mood, No Sensory Deficits Cerebellar Function: Normal Reflexes: Normal Skin: Dry, Warm, Other (2CM X 2CM BUMP WITH LOCALIZED REDNESS, HARDNESS, AND TENDERNESS TO PALPATION ON THE BACK OF THE SCALP. + FOLLICULITIS.) Peripheral Pulses: 2+ carotid (R), 2+ carotid (L) Lymphatic: No Adenopathy Was a procedure done? Was a procedure done?: No Differential Diagnosis (INTG) Differential Diagnosis: Abscess, Cellulitis, Other (FOLLICULITIS) Abscess: Felon X-Ray, Labs, Meds, VS Vital Signs Date Time Temp Pulse Resp B/P (MAP) Pulse Ox O2 Delivery O2 Flow Rate FiO2 11/21/24 16:38 98.6 105 18 118/74 (89) 93 98.6 X-Ray, Labs, Meds, VS Comment COURSE: EXTERNAL MEDICAL RECORDS REVIEWED: [NONE] INDEPENDENT HISTORIANS: [NONE] SOCIAL DETERMINANTS OF HEALTH: [NONE] LABS ORDERED: NONE REVIEWED AND INTERPRETED RESULTS: NONE IMAGING ORDERED: NONE TREATMENTS ORDERED: NONE PROCEDURES PERFORMED: NONE CRITICAL CARE TIME: NONE I HAVE DISCUSSED THE PATIENT WITH THE ATTENDING PHYSICIAN DR. CARLTON AND HE AGREES WITH THE PATIENT'S PLAN OF CARE AND DISPOSITION. BASED ON HISTORY OF PRESENT ILLNESS, AND PHYSICAL EXAM, PATIENT WILL BE DISCHARGED HOME. DISCUSSED PLAN FOR DISCHARGE HOME WITH RX KEFLEX AND TYLENOL. MEDICATION WARNINGS GIVEN. SHARED DECISION MAKING: DISCUSSED WITH PATIENT THAT THEIR WORKUP WAS NORMAL. PATIENT INSTRUCTED TO FOLLOW UP WITH PRIMARY CARE PROVIDER IN 1-2 DAYS FOR RE- EVALUATION OF SYMPTOMS. PATIENT VERBALIZES UNDERSTANDING TO RETURN TO ED FOR NEW OR WORSENING SYMPTOMS OR IF FOLLOW UP WITH PCP CANNOT BE OBTAINED. PATIENT FEELS COMFORTABLE GOING HOME AT THIS TIME. ALL QUESTIONS ADDRESSED AT TIME OF DISCHARGE. Time of 1ST Reevaluation: 17:00 Reevaluation 1ST: Unchanged Patient Education/Counseling: Diagnosis, Treatment Family Education/Counseling: No Family Present SEPSIS Sepsis Screen Vital Signs Date Time Temp Pulse Resp B/P (MAP) Pulse Ox O2 Delivery O2 Flow Rate FiO2 11/21/24 16:38 98.6 105 18 118/74 (89) 93 98.6 Departure 1 Departure Time of Disposition: 17:00 Impression: Primary Impression: Folliculitis Disposition: 01 HOME / SELF CARE / HOMELESS Condition: Stable Additional Instructions: FOLLOW-UP WITH PCP IN 1 TO 2 DAYS. TAKE MEDICATIONS PRESCRIBED. RETURN TO ED FOR ANY NEW OR WORSENING SYMPTOMS. e-Prescriptions Acetaminophen (Tylenol Extra Strength Fo) 500 Mg Tab 1000 MG PO BID, #30 TAB Prov: MATA CHRISTIANSEN 11/21/24 Cephalexin Monohydrate (Cephalexin) 500 Mg Cap 2 CAP PO BID, #40 CAP Prov: MATA CHRISTIANSEN 11/21/24 Discharged With: Self Critical Care Note Critical Care Time?: No Stability Stability form required: No Heart Score Heart Score: Heart Score Response (Comments) Value History N/A 0 EKG N/A 0 Age N/A 0 Risk Factors N/A 0 Troponin N/A 0 Total 0 I personally scribed for MATA CHRISTIANSEN ([email or web address]) on 11/21/24 at 16:42. Electronically submitted by Marlo West ([email or web address]). MATA CHRISTIANSEN Nov 21, 2024 16:42
[2024-11-21] MEDS ORDERED: CEPH500C PO (16:52)
[2024-11-21] MEDS ORDERED: ACET-1304 PO (16:52)
[2024-11-21 17:41] VITALS: BP 115/70; PULSE 91; RESP 15; TEMP 98.2; O2SAT 97
== END 2024-11-21 17:52 | disposition home or self-care (01) ==
LOC: ER 16:25
DX: L73.9 Follicular disorder, unspecified (principal); I11.0 Hypertensive heart disease with heart failure; I50.9 Heart failure, unspecified; E78.5 Hyperlipidemia, unspecified; M10.9 Gout, unspecified; Z79.899 Other long term (current) drug therapy

== ENCOUNTER → 2025-03-03 | Outpatient (CLI) | payer MEDICAID ==
[~2025-03-03] MED LIST changes: +ACET-1304 PO; +CEPH500C PO
[2025-03-03 14:22] LABS: Chloride 103 mmol/L (98-107); Potassium 4.8 mmol/L (3.5-5.1); Sodium 139 mmol/L (136-145)
[2025-03-03 14:23] LABS: Anion Gap 9 (5-15); Calcium 9.0 mg/dL (8.7-10.4); Carbon Dioxide 27 mmol/L (20-31)
[2025-03-03 14:28] LABS: BUN/Creatinine Ratio 11.9 (10.0-20.0); Blood Urea Nitrogen 16 mg/dL (9-23); Glucose 100 mg/dL (74-106)
== END | disposition home or self-care (01) ==
LOC: LAB 13:39
PROVIDERS: ATTEND Internal Medicine
DX: N28.9 Disorder of kidney and ureter, unspecified (principal)
CPT/HCPCS: 36415; 80048

== ENCOUNTER 2025-03-04 14:48 | Inpatient (IN) | payer MEDICAID ==
[~2025-03-04] VITALS: Ht 170.2 cm; Wt 124.2 kg
[2025-03-04 15:15] VITALS: PULSE 75; RESP 20; O2SAT 94
--- NOTE | 2025-03-04 15:31 | ED.PDOC ---
History of Present Illness HPI Comments Mr. Walden 60-year-old male with prior medical history of gout, hyperlipidemia, hypertension, and stroke when he was 39, who presents today BIBA with chief complaint of loss of consciousness. The patient was donating plasma when towards the end of the procedure he became dizzy, diaphoretic, and subsequently lost consciousness, prompting staff to call EMS. Per EMS, on the same blood pressure was 95/75, blood glucose was 109, and 12 lead EKG shows sinus bradycardia. On initial evaluation emergency department, the patient is AO x4, pale, diaphoretic, and referring dizziness and blurry vision. He denies chest pain, shortness of breath, palpitations, arm pain, hitting his head, urinary or fecal incontinence. Additionally refers that for the last 2 weeks he has had some nonspecific abdominal discomfort. Chief Complaint: Syncope Time Seen by MD: 14:40 Primary Care Provider: JUAN CARLOS Allergies: Coded Allergies: NO KNOWN ALLERGIES (Unverified , 12/08/22) Home Meds Active Scripts Acetaminophen (Tylenol Extra Strength Fo) 500 Mg Tab, 1000 MG PO BID, #30 TAB Prov:MATA CHRISTIANSEN 11/21/24 Cephalexin Monohydrate (Cephalexin) 500 Mg Cap, 2 CAP PO BID, #40 CAP Prov:MATA CHRISTIANSEN 11/21/24 Reported Medications Gravette-3 Fatty Acids (FISH OIL) 1,000 Mg Cap, 1000 MG PO DAILY, CAP 06/25/24 Atorvastatin Calcium (ATORVASTATIN CALCIUM) 40 Mg Tab, 1 TAB PO DAILY 12/03/23 Allopurinol (Allopurinol) 300 Mg Tab, 1 TAB PO DAILY 12/03/23 Ezetimibe (Ezetimibe) 10 Mg Tab, 1 TAB PO DAILY 12/03/23 Lisinopril (Lisinopril) 40 Mg Tab, 1 TAB PO DAILY 12/03/23 Amlodipine Besylate (Amlodipine Besylate) 10 Mg Tab, 1 TAB PO DAILY 12/03/23 Information Source: Patient Mode of Arrival: EMS Severity: Moderate Timing: Hours Duration: Since onset Past Medical History PAST MEDICAL HISTORY: CKF, CVA, Gout, High Lipids, HTN Surgical History (Other): Carpal tunnel repair, right knee replacement Family History Family History: Reviewed,noncontributory to illness Social History Smoker: Non-Smoker Alcohol: Occasionally Drugs: Denies Drug Use Lives In: Home Constitutional: reports: diaphoresis, weakness, others (Dizziness) EENTM: reports: blurred vision; denies: double vision, ear bleeding, ear pain, ear ringing, eye pain, eye redness, hearing loss, nasal discharge, nose bleeding, nose congestion, photophobia, throat pain Respiratory: denies: cough, hemoptysis, orthopnea, shortness of breath Cardiovascular: reports: diaphoresis, lightheadedness, syncope; denies: chest pain, dizzy spells, Dyspnea on exertion, edema, irregular heart beat, left arm pain, palpitations Gastrointestinal: denies: abdomen distended, abdominal pain, diarrhea, dysphagia, difficulty swallowing, hematemesis, melena, nausea, poor appetite, poor fluid intake, vomiting Genitourinary: denies: burning, dysuria, flank pain, frequency, hematuria, incontinence, pain Neurological: reports: dizziness; denies: fainting, headache, numbness, paresthesia, pre-existing deficit, seizure, speech problems, tingling, tremors, weakness Musculoskeletal: reports: back pain, gout; denies: joint pain, joint swelling, muscle pain, muscle stiffness, neck pain Integumetry: reports: dryness; denies: bruises, laceration, lesions, lumps, rash, wounds Physical Exam General Appearance: Moderate Distress, Obese HEENT: Pharynx Normal, Other (Pinpoint pupils, reactive, EOM intact) Neck: Full Range of Motion, Non-Tender, Normal Inspection Respiratory: Chest Non-Tender, Lungs Clear, No Respiratory Distress, Normal Breath Sounds Cardiovascular: Bradycardia, No Edema, No Murmur, Normal Peripheral Pulses Breast Exam: Deferred Gastrointestinal: Non Tender, No Pulsatile Mass, Normal Bowel Sounds, Soft Genitalia: Deferred Pelvic: Deferred Rectal: Deferred Extremities: Normal capillary refill, Normal inspection, Normal range of motion, Non-tender, No pedal edema Neurologic: Normal Affect, Normal Mood, No Sensory Deficits Cerebellar Function: Normal Reflexes: NOT DONE Skin: Pallor Lymphatic: Other (No cervical adenopathy) Was a procedure done? Was a procedure done?: No EKG EKG : Pulse Rate (adult): 56 [place]: Normal Cardiac Rhythm: NSR Block: None Hypertrophy: None ST: Normal Differential Dx Considerations may include: vasovagal syncope, arrhythmia, ACS, AK, drug overdose X-Ray, Labs, Meds, VS Vital Signs Date Time Temp Pulse Resp B/P (MAP) Pulse Ox O2 Delivery O2 Flow Rate FiO2 03/04/25 16:00 77 03/04/25 15:15 75 20 94 Room Air* 0 21 03/04/25 15:15 75 20 87/55 (66) 94 03/04/25 14:52 83 03/04/25 14:48 98.0 56 16 95/75 98 98.0 Lab Test 03/04/25 16:25 03/04/25 15:35 Range/Units Troponin I High Sensitivity Pending 3 L </=54 ng/L White Blood Count 12.8 H 4.4-10.8 10^3/uL Red Blood Count 5.20 4.5-5.90 10^6/uL Hemoglobin 16.3 13.5-17.5 g/dL Hematocrit 48.4 41.0-53.0 % Mean Corpuscular Volume 92.9 80.0-100.0 fL Mean Corpuscular Hemoglobin 31.3 28.0-32.0 pg Mean Corpuscular Hemoglobin Concent 33.7 32.0-36.0 g/dL Red Cell Distribution Width 15.2 H 11.8-14.3 % Platelet Count 308 140-450 10^3/uL Mean Platelet Volume 6.7 L 6.9-10.8 fL Neutrophils (%) (Auto) 78.6 37.0-80.0 % Lymphocytes (%) (Auto) 15.5 10.0-50.0 % Monocytes (%) (Auto) 4.7 0.0-12.0 % Eosinophils (%) (Auto) 0.7 0.0-7.0 % Basophils (%) (Auto) 0.5 0.0-2.0 % Neutrophils # (Auto) 10.1 H 1.6-8.6 10 ^3/uL Lymphocytes # (Auto) 2.0 0.4-5.4 10 ^3/uL Monocytes # (Auto) 0.6 0-1.3 10 ^3/uL Eosinophils # (Auto) 0.1 0-0.8 10 ^3/uL Basophils # (Auto) 0.1 0-0.2 10 ^3/uL Nucleated Red Blood Cells 0.0 % Sodium Level 141 136-145 mmol/L Potassium Level 4.7 3.5-5.1 mmol/L Chloride Level 106 98-107 mmol/L Carbon Dioxide Level 26 20-31 mmol/L Anion Gap 9 5-15 Blood Urea Nitrogen 17 9-23 mg/dL Creatinine 1.61 H 0.700-1.30 mg/dL Glomerular Filtration Rate Calc 49 >90 mL/min BUN/Creatinine Ratio 10.6 10.0-20.0 Serum Glucose 116 H 74-106 mg/dL Calcium Level 8.5 L 8.7-10.4 mg/dL Current Medications Medications (Trade) Dose Ordered Sig/Jluis Route Start Time Stop Time Status Last Admin Sodium Chloride 1,000 ml @ 1,000 mls/hr Q1H ONCE IV 03/04/25 16:30 03/04/25 17:29 DC 03/04/25 16:30 Time of 1ST Reevaluation: 17:40 Reevaluation 1ST: Improved Patient Education/Counseling: Diagnosis, Treatment Family Education/Counseling: No Family Present Comments The patient presented today brought by EMS due to a syncopal episode while donating plasma Per EMS on scene the patient's blood pressure was 95/75, 12 lead EKGs showing sinus bradycardia, blood glucose 109 On initial evaluation the patient was pale, diaphoretic, and referring blurry vision and dizziness Blood pressure was 84/57, for which 1 L of fluids were given Initial workup CBC shows WBCs 12.8, BMP shows elevated creatinine, troponins are negative Initial EKG shows sinus bradycardia The patient will be admitted for further workup and monitoring SEPSIS Sepsis Screen Physician Orders Troponin-I Hs (03/04/25 16:13) Drug Screen (03/04/25 15:30) Urinalysis (03/04/25 15:30) Vital Signs Date Time Temp Pulse Resp B/P (MAP) Pulse Ox O2 Delivery O2 Flow Rate FiO2 03/04/25 16:00 77 03/04/25 15:15 75 20 94 Room Air* 0 21 03/04/25 15:15 75 20 87/55 (66) 94 03/04/25 14:52 83 03/04/25 14:48 98.0 56 16 95/75 98 98.0 Laboratory Tests Test 03/04/25 15:35 White Blood Count 12.8 10^3/uL (4.4-10.8) H Medications Medications Dose Ordered Sig/Jluis Route Start Time Stop Time Status Last Admin Dose Admin Sodium Chloride 1,000 ml @ 1,000 mls/hr Q1H ONCE IV 03/04/25 16:30 03/04/25 17:29 DC 03/04/25 16:30 Departure 1 Departure Time of Disposition: 17:43 Impression: Primary Impression: Syncope Additional Impression: Hypotension Disposition: 30 STILL A PATIENT Admit to: Tele Condition: Stable Critical Care Note Critical Care Time?: No Stability Stability form required: LACIE Ignacio Mar 04, 2025 15:31 MACIE JUAREZ MD Mar 04, 2025 16:30
[2025-03-04 15:46] LABS: Hematocrit 48.4 % (41.0-53.0); Hemoglobin 16.3 g/dL (13.5-17.5); Mean Corpuscular Hemoglobin 31.3 pg (28.0-32.0); Mean Corpuscular Volume 92.9 fL (80.0-100.0); Nucleated Red Blood Cells % 0.0 %
[2025-03-04 15:52] LABS: Anion Gap 9 (5-15); Carbon Dioxide 26 mmol/L (20-31); Chloride 106 mmol/L (98-107); Potassium 4.7 mmol/L (3.5-5.1); Sodium 141 mmol/L (136-145)
[2025-03-04 15:54] LABS: Calcium 8.5 mg/dL (8.7-10.4)
[2025-03-04 15:58] LABS: BUN/Creatinine Ratio 10.6 (10.0-20.0); Blood Urea Nitrogen 17 mg/dL (9-23); Glucose 116 mg/dL (74-106)
[2025-03-04] MEDS: SODIUM CHLORIDE 0.9% 1,000 ML IV ONE (16:30)
--- NOTE | 2025-03-04 16:48 | ECG ---
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
[2025-03-04 19:04] LABS: Amphetamine Screen, Urine Neg (NEGATIVE); Barbiturate Scree,Urine Neg (NEGATIVE); Benzodiazephine Screen, Urine Neg (NEGATIVE); Cannabinoid Screen, Urine Neg (NEGATIVE); Cocaine Screen, Urine Neg (NEGATIVE); Opiate Scree,Urine Neg (NEGATIVE); Phencyclidine Screen, Urine Neg (NEGATIVE)
[2025-03-04 19:07] LABS: Urine Protein, UAD TRACE (Negative)
[2025-03-04] MEDS ORDERED: ONDANSETRON HCL 4 MG/2 ML VIAL IV PRN (19:45)
[2025-03-04] MEDS ORDERED: NITROGLYCERIN 0.4 MG SL TAB SL PRN (19:45)
[2025-03-04] MEDS ORDERED: MORPHINE SULFATE INJ 2 MG/ml SYRG IV PRN (19:45)
[2025-03-04] MEDS: MIDODRINE HCL 10 MG TAB PO ONE (21:00)
--- NOTE | 2025-03-04 21:14 | DVH ---
Carotid Duplex Date: 03/04/2025 08:37 PM Clinical History: syncope Comparison: None Technique: Duplex Doppler evaluation of the extracranial carotid and vertebral arteries including col or Doppler and spectral/pulsed waveform analysis was performed. Findings: RIGHT SIDE: The peak systolic velocities are 140 cm/s in the distal CCA and 162 cm/s in the proximal ICA.The ICA/ CCA ratio is less than 2. The external carotid artery is patent with peak systolic velocity of 209 cm/s proximally. There is appropriate antegrade flow in the right vertebral artery. LEFT SIDE: The peak systolic velocities are 122 cm/s in the distal CCA and 50 cm/s in the proximal ICA.. The ICA /CCA ratio is less than 2. The external carotid artery is patent with peak systolic velocity of 154 cm/s proximally. There is appropriate antegrade flow in the left vertebral artery. IMPRESSION: 1. No hemodynamically significant stenosis noted in the right carotid system. 2. No hemodynamically significant stenosis noted in the left carotid system. 3. Reference: Radiology 2003; 229:340-346
[2025-03-04 21:19] LABS: Lactic Acid w/Reflex 2.7 mmol/L (0.4-2.0)
[2025-03-04 21:23] VITALS: BP 118/66; PULSE 84; RESP 15; TEMP 97.9; O2SAT 95
[2025-03-04 21:33] VITALS: BP 118/66; PULSE 85; RESP 15; TEMP 97.9; O2SAT 95
[2025-03-04] MEDS: ATORVASTATIN 20 MG TAB PO SCH (21:39)
--- NOTE | 2025-03-04 21:39 | DVH ---
CLINICAL HISTORY: abd pain TECHNIQUE: CT of the abdomen and pelvis was performed without IV contrast. This exam was performed ac cording to our departmental dose optimization program. Up-to-date CT equipment and radiation dose red uction techniques are utilized as appropriate. CTDI 27 DLP 1441 COMPARISON: US RENAL on DOS: 01/24/24, CT CT AB PEL WO CON-NO ORAL OR IV on DOS: 12/02/23 FINDINGS: Abdomen/Pelvis: The spleen, pancreas, liver, gallbladder, adrenal glands, left kidney, and bladder are grossly unrema rkable. There has been previous prostate intervention. Hypodensity within the right kidney is incompletely characterized due to lack of IV contrast. The abdominal aorta is normal in course and caliber. There are mild atherosclerotic calcifications. There is no free intraperitoneal air or fluid. There is no enlarged abdominal pelvic lymph node. There is no bowel wall thickening or dilatation. The appendix is seen. Pseudo focal inflammatory proc ess in its expected location There is colonic diverticulosis, moderate at the sigmoid segment. Other: The imaged lower thorax mild atelectatic changes in both lung bases there are 3-vessel coronary arter y calcifications. No acute osseous abnormality is evident. There has been right ORIF with partially hardware present. T here is 3 mm grade 1 L5-S1 spondylolysis. Impression: No acute noncontrast CT abnormality abdomen/pelvis Colonic diverticulosis. Coronary artery calcifications
[2025-03-04] MEDS: ACETAMINOPHEN 325 MG TAB PO PRN (21:40)
[2025-03-05] VITALS (7 sets, daily range): BP systolic 96–139; BP diastolic 51–77; PULSE 72–87; RESP 18–22; TEMP 97.3–98.8; O2SAT 91–98
--- NOTE | 2025-03-05 01:26 | DVHHP2 ---
History of Present Illness Reason for Visit: Syncope History of Present Illness 60-year-old male presents for evaluation of syncope. Patient reports that yesterday while donating plasma towards the end of the procedure he became dizzy, diaphoretic subsequently lost consciousness and it was reported by personnel in the facility that he was foaming at the mouth as well. Currently he denies dizziness headache, chest pain or shortness for breath. He does not recall any of the events. He does report a two week history of intermittent abdominal discomfort and bloating. On arrival to the emergency department patient's blood pressure was in the low 80s. Past Medical History Dyslipidemia, hypertension, gout, CVA, chronic kidney disease Past Surgical History Knee replacement Smoke: No ALCOHOL: occassional Drugs: None Lives: with Family Review of Systems Review of Systems Review of systems are currently negative otherwise addressed in HPI. Allergies: Coded Allergies: NO KNOWN ALLERGIES (Unverified , 12/08/22) Medications Current Medications Medications Dose Ordered Sig/Jluis Route Start Time Stop Time Status Last Admin Dose Admin Atorvastatin Calcium 40 mg HS PO 03/04/25 22:00 03/04/25 21:39 40 MG Allopurinol 300 mg DAILY PO 03/05/25 10:00 Ondansetron HCl 4 mg Q4HP PRN IV 03/04/25 19:45 Acetaminophen 650 mg Q6HP PRN PO 03/04/25 19:45 03/04/25 21:40 650 MG Nitroglycerin 0.4 mg Q5MINP PRN SL 03/04/25 19:45 Morphine Sulfate 2 mg Q30M PRN IV 03/04/25 19:45 Exam Vital Signs Vital Signs Date Time Temp Pulse Resp B/P (MAP) Pulse Ox O2 Delivery O2 Flow Rate FiO2 03/05/25 01:00 97.3 79 19 96/65 (75) 95 97.3 03/04/25 21:23 Room Air* 0 21 Exam Gen: 60-year-old male in mild distress. Skin: Warm, dry, normal color and texture, no rash. HEENT: Normocephalic atraumatic, mucous membranes moist and pink. Neck: Cervical and supraclavicular nodes normal without enlargement, trachea is midline, thyroid gland is normal without masses. Pulmonary: Clear to auscultation and percussion bilaterally. Cardiac: Regular rate and rhythm. No murmur Abdomen: Soft, nontender, nondistended, bowel sounds present all 4 quadrants, no guarding, no rigidity, no organomegaly. Extremities: No cyanosis, clubbing, no edema Neuro: Cranial nerves II through XII grossly intact, normal affect and speech, no focal motor deficits. Labs/Xrays ORDERING PHYSICIAN: MAULIK CRUZ PROCEDURE(s): CARCL - CAROTID DUPLX W COLOR DOP REASON: syncope ORDER NUMBER(s): [id number], ACCESSION NUMBER(s): [id number] Carotid Duplex Date: 03/04/2025 08:37 PM Clinical History: syncope Comparison: None Technique: Duplex Doppler evaluation of the extracranial carotid and vertebral arteries including color Doppler and spectral/pulsed waveform analysis was performed. Findings: RIGHT SIDE: The peak systolic velocities are 140 cm/s in the distal CCA and 162 cm/s in the proximal ICA.The ICA/CCA ratio is less than 2. The external carotid artery is patent with peak systolic velocity of 209 cm/s proximally. There is appropriate antegrade flow in the right vertebral artery. LEFT SIDE: The peak systolic velocities are 122 cm/s in the distal CCA and 50 cm/s in the proximal ICA.. The ICA/CCA ratio is less than 2. The external carotid artery is patent with peak systolic velocity of 154 cm/s proximally. There is appropriate antegrade flow in the left vertebral artery. IMPRESSION: 1. No hemodynamically significant stenosis noted in the right carotid system. 2. No hemodynamically significant stenosis noted in the left carotid system. 3. Reference: Radiology 2003; 229:340-346 RING PHYSICIAN: MAULIK CRUZ PROCEDURE(s): ABPL - CT AB PEL WO CON-NO ORAL OR IV REASON: abd pain ORDER NUMBER(s): [id number], ACCESSION NUMBER(s): [id number] CLINICAL HISTORY: abd pain TECHNIQUE: CT of the abdomen and pelvis was performed without IV contrast. This exam was performed according to our departmental dose optimization program. Up-to-date CT equipment and radiation dose reduction techniques are utilized as appropriate. CTDI 27 DLP 1441 COMPARISON: US RENAL on DOS: 01/24/24, CT CT AB PEL WO CON-NO ORAL OR IV on DOS: 12/02/23 FINDINGS: Abdomen/Pelvis: The spleen, pancreas, liver, gallbladder, adrenal glands, left kidney, and bladder are grossly unremarkable. There has been previous prostate intervention. Hypodensity within the right kidney is incompletely characterized due to lack of IV contrast. The abdominal aorta is normal in course and caliber. There are mild atherosclerotic calcifications. There is no free intraperitoneal air or fluid. There is no enlarged abdominal pelvic lymph node. There is no bowel wall thickening or dilatation. The appendix is seen. Pseudo focal inflammatory process in its expected location There is colonic diverticulosis, moderate at the sigmoid segment. Other: The imaged lower thorax mild atelectatic changes in both lung bases there are 3- vessel coronary artery calcifications. No acute osseous abnormality is evident. There has been right ORIF with partially hardware present. There is 3 mm grade 1 L5-S1 spondylolysis. Impression: No acute noncontrast CT abnormality abdomen/pelvis Colonic diverticulosis. Coronary artery calcifications Labs Test 03/04/25 22:11 03/04/25 18:20 03/04/25 16:25 03/04/25 15:35 Range/Units Lactic Acid Level 1.4 0.4-2.0 mmol/L Urine Color Light-yellow Yellow Urine Clarity Clear Clear Urine pH 5.5 5.0-9.0 Urine Specific [place] 1.014 1.001-1.035 Urine Protein Trace H Negative Urine Ketones Negative Negative Urine Blood Negative Negative /uL Urine Nitrite Negative Negative Urine Bilirubin Negative Negative Urine Urobilinogen Normal Negative mg/dL Urine Leukocyte Esterase Negative Negative /uL Urine RBC <1 0 - 3 /hpf Urine Microscopic WBC 4 H 0-3 /HPF Urine Squamous Epithelial Cells Few <5 /hpf Urine Bacteria Few H None Seen /hpf Urine Hyaline Casts Mod 0 - 2 /lpf Urine Mucus Few None Seen Urine Glucose Normal Normal mg/dL Urine Opiates Screen Neg NEGATIVE Urine Fentanyl Screen Neg NEGATIVE Urine Barbiturates Screen Neg NEGATIVE Urine Phencyclidine Screen Neg NEGATIVE Urine Amphetamines Screen Neg NEGATIVE Urine Benzodiazepines Screen Neg NEGATIVE Urine Cocaine Screen Neg NEGATIVE Urine Cannabinoids Screen Neg NEGATIVE Troponin I High Sensitivity 3 L </=54 ng/L White Blood Count 12.8 H 4.4-10.8 10^3/uL Red Blood Count 5.20 4.5-5.90 10^6/uL Hemoglobin 16.3 13.5-17.5 g/dL Hematocrit 48.4 41.0-53.0 % Mean Corpuscular Volume 92.9 80.0-100.0 fL Mean Corpuscular Hemoglobin 31.3 28.0-32.0 pg Mean Corpuscular Hemoglobin Concent 33.7 32.0-36.0 g/dL Red Cell Distribution Width 15.2 H 11.8-14.3 % Platelet Count 308 140-450 10^3/uL Mean Platelet Volume 6.7 L 6.9-10.8 fL Neutrophils (%) (Auto) 78.6 37.0-80.0 % Lymphocytes (%) (Auto) 15.5 10.0-50.0 % Monocytes (%) (Auto) 4.7 0.0-12.0 % Eosinophils (%) (Auto) 0.7 0.0-7.0 % Basophils (%) (Auto) 0.5 0.0-2.0 % Neutrophils # (Auto) 10.1 H 1.6-8.6 10 ^3/uL Lymphocytes # (Auto) 2.0 0.4-5.4 10 ^3/uL Monocytes # (Auto) 0.6 0-1.3 10 ^3/uL Eosinophils # (Auto) 0.1 0-0.8 10 ^3/uL Basophils # (Auto) 0.1 0-0.2 10 ^3/uL Nucleated Red Blood Cells 0.0 % Sodium Level 141 136-145 mmol/L Potassium Level 4.7 3.5-5.1 mmol/L Chloride Level 106 98-107 mmol/L Carbon Dioxide Level 26 20-31 mmol/L Anion Gap 9 5-15 Blood Urea Nitrogen 17 9-23 mg/dL Creatinine 1.61 H 0.700-1.30 mg/dL Glomerular Filtration Rate Calc 49 >90 mL/min BUN/Creatinine Ratio 10.6 10.0-20.0 Serum Glucose 116 H 74-106 mg/dL Calcium Level 8.5 L 8.7-10.4 mg/dL SEPSIS Sepsis Screen Date sepsis recognized/suspect: Mar 04, 2025 Time Sepsis recognized/suspect: 1514 Recent Procedure: Yes (donating plasma) On Antibiotic Therapy: No Respiratory Rate >20: No Heart Rate >90: No Temp<36 C (96.8 F) or >38.3 C: No SBP <90 or MAP <65 mmHG: Yes New Acute Mental Status Change: No Is the patient on CPAP, BIPAP,: No Physician Orders Atorvastatin (Lipitor) (03/04/25 22:00) Allopurinol Tablet (Zyloprim Tablet) (03/05/25 10:00) Basic Metabolic Panel (03/05/25 04:00) Admit (03/04/25 19:44) Ondansetron Hcl (Zofran) (03/04/25 19:45) Complete Blood Count (03/05/25 04:00) Cardiac Diet-2gna,Lofat,Lochol (03/05/25 Breakfast) Echo 2d Mode Cardiac Dop (03/04/25 19:44) Carotid Duplx W Color Dop (03/04/25 19:44) Condition: Fair (03/04/25 19:44) Acetaminophen Tablet (Tylenol Tablet) (03/04/25 19:45) Bedrest With Bathroom Privileg (03/04/25 19:44) Nitroglycerin Sublingual (Ntrostat Subli (03/04/25 19:45) Morphine Sulfate Injection (03/04/25 19:45) Stat Ekg For Chest Pain (03/04/25 19:44) Notify Of Changes From Base (03/04/25 19:44) Spring Coiling Machine Setter For 24 Hours (03/04/25 19:44) Emergency Dysrhythmia Protocol (03/04/25 19:44) Rhythm Strips Once Every Shift (03/04/25 19:44) Oxygen By Nasal Cannula (03/04/25 19:44) Orthostatic Vital Signs (03/04/25 ) Ct Ab Pel Wo Con-No Oral Or Iv (03/04/25 21:06) Vital Signs Date Time Temp Pulse Resp B/P (MAP) Pulse Ox O2 Delivery O2 Flow Rate FiO2 03/05/25 01:00 97.3 79 19 96/65 (75) 95 97.3 03/04/25 21:33 97.9 85 15 118/66 (83) 95 97.9 03/04/25 21:23 Room Air* 0 21 03/04/25 21:23 97.9 84 15 118/66 (83) 95 97.9 03/04/25 20:34 86 118/67 03/04/25 20:30 98 111/73 03/04/25 20:26 94 96/59 03/04/25 20:22 95 23 96/60 (72) 93 03/04/25 20:00 86 03/04/25 19:00 83 22 99/62 (74) 92 03/04/25 18:17 86 108/61 03/04/25 18:15 85 108/67 03/04/25 18:12 70 110/55 03/04/25 18:11 75 20 110/55 (73) 97 03/04/25 17:44 56 03/04/25 17:30 67 19 100/56 (71) 97 Laboratory Tests Test 03/04/25 15:35 03/04/25 20:03 03/04/25 22:11 White Blood Count 12.8 10^3/uL (4.4-10.8) H Lactic Acid Level 2.7 mmol/L (0.4-2.0) *H 1.4 mmol/L (0.4-2.0) Medications Medications Dose Ordered Sig/Jluis Route Start Time Stop Time Status Last Admin Dose Admin Acetaminophen 650 mg Q6HP PRN PO 03/04/25 19:45 03/04/25 21:40 650 MG Atorvastatin Calcium 40 mg HS PO 03/04/25 22:00 03/04/25 21:39 40 MG Midodrine 10 mg ONCE ONCE PO 03/04/25 19:45 03/04/25 20:36 DC 03/04/25 21:00 10 MG Sodium Chloride 1,000 ml @ 1,000 mls/hr Q1H ONCE IV 03/04/25 16:30 03/04/25 17:29 DC 03/04/25 16:30 1,000 MLS/HR Assessment/Plan Assessment/Plan Assessment Syncope Symptomatic hypotension Chronic kidney disease Plan Admit the patient to telemetry to the hospitalist X1 dose of midodrine 10 mg Hold antihypertensives Resume home medications Orthostatic vital signs Continue treatment per orders. Plan discussed with: Patient My Orders Orders - MAULIK CRUZCNP Procedure Category Date Status Time Atorvastatin (Lipitor) PHA 03/04/25 In Process 22:00 Allopurinol Tablet PHA 03/05/25 In Process (Zyloprim Tablet) 10:00 Basic Metabolic Panel LAB 03/05/25 Logged 04:00 Admit ADMIT 03/04/25 Transmitted 19:44 Ondansetron Hcl PHA 03/04/25 In Process (Zofran) 19:45 Complete Blood Count LAB 03/05/25 Logged 04:00 Cardiac DIET 03/05/25 Transmitted Diet-2gna,Lofat,Lochol Breakfast Echo 2d Mode Cardiac US 03/04/25 Logged DOP 19:44 Carotid Duplx W Color US 03/04/25 Resulted DOP 19:44 Condition: Fair [facility] 03/04/25 In Process 19:44 Acetaminophen Tablet PHA 03/04/25 In Process (Tylenol Tablet) 19:45 Bedrest With Bathroom ROSI 03/04/25 In Process Privileg 19:44 Nitroglycerin [facility] 03/04/25 In Process Sublingual (Ntrostat 19:45 Morphine Sulfate PHA 03/04/25 In Process Injection 19:45 Stat Ekg For Chest [facility] 03/04/25 In Process Pain 19:44 Notify Md Of Changes [facility] 03/04/25 In Process From Base 19:44 Spring Coiling Machine Setter For [facility] 03/04/25 In Process 24 Hours 19:44 Emergency Dysrhythmia [facility] 03/04/25 In Process Protocol 19:44 Rhythm Strips Once [facility] 03/04/25 In Process Every Shift 19:44 Oxygen By Nasal RT 03/04/25 Transmitted Cannula 19:44 Orthostatic Vital ED NURSING 03/04/[address] Ab Pel Wo Con-No CT 03/04/25 Resulted Oral Or Iv 21:06 Date of Service: Mar 04, 2025 Billing Provider: MAULIK CRUZ Common Visit Codes: [id number] INP/OBS CARE(LOW) MAULIK CRUZ Mar 05, 2025 01:26
[2025-03-05 07:02] LABS: Potassium 4.7 mmol/L (3.5-5.1); Sodium 143 mmol/L (136-145)
[2025-03-05 07:03] LABS: Anion Gap 9 (5-15); Carbon Dioxide 26 mmol/L (20-31)
[2025-03-05 07:04] LABS: Calcium 8.2 mg/dL (8.7-10.4); Chloride 108 mmol/L (98-107)
[2025-03-05 07:08] LABS: BUN/Creatinine Ratio 11.5 (10.0-20.0); Blood Urea Nitrogen 18 mg/dL (9-23); Glucose 94 mg/dL (74-106)
[2025-03-05 07:09] LABS: Hematocrit 41.4 % (41.0-53.0); Hemoglobin 14.0 g/dL (13.5-17.5); Mean Corpuscular Hemoglobin 31.4 pg (28.0-32.0); Mean Corpuscular Volume 92.7 fL (80.0-100.0); Nucleated Red Blood Cells % 0.0 %
[2025-03-05] MEDS: ALLOPURINOL 100 MG TAB PO SCH (09:25)
--- NOTE | 2025-03-05 11:00 | DVHDS2 ---
Discharge Summary Date of Admission Mar 04, 2025 at 19:44 Date of Discharge: Mar 05, 2025 Labs/Diagnostic Data: Laboratory Results Test 03/05/25 04:42 03/04/25 22:11 03/04/25 18:20 03/04/25 16:25 White Blood Count 8.6 10^3/uL (4.4-10.8) Red Blood Count 4.46 10^6/uL (4.5-5.90) Hemoglobin 14.0 g/dL (13.5-17.5) Hematocrit 41.4 % (41.0-53.0) Mean Corpuscular Volume 92.7 fL (80.0-100.0) Mean Corpuscular Hemoglobin 31.4 pg (28.0-32.0) Mean Corpuscular Hemoglobin Concent 33.8 g/dL (32.0-36.0) Red Cell Distribution Width 15.4 % (11.8-14.3) Platelet Count 247 10^3/uL (140-450) Mean Platelet Volume 6.9 fL (6.9-10.8) Neutrophils (%) (Auto) 65.0 % (37.0-80.0) Lymphocytes (%) (Auto) 26.6 % (10.0-50.0) Monocytes (%) (Auto) 6.7 % (0.0-12.0) Eosinophils (%) (Auto) 1.5 % (0.0-7.0) Basophils (%) (Auto) 0.2 % (0.0-2.0) Neutrophils # (Auto) 5.6 10 ^3/uL (1.6-8.6) Lymphocytes # (Auto) 2.3 10 ^3/uL (0.4-5.4) Monocytes # (Auto) 0.6 10 ^3/uL (0-1.3) Eosinophils # (Auto) 0.1 10 ^3/uL (0-0.8) Basophils # (Auto) 0 10 ^3/uL (0-0.2) Nucleated Red Blood Cells 0.0 % Sodium Level 143 mmol/L (136-145) Potassium Level 4.7 mmol/L (3.5-5.1) Chloride Level 108 mmol/L (98-107) Carbon Dioxide Level 26 mmol/L (20-31) Anion Gap 9 (5-15) Blood Urea Nitrogen 18 mg/dL (9-23) Creatinine 1.57 mg/dL (0.700-1.30) Glomerular Filtration Rate Calc 51 mL/min (>90) BUN/Creatinine Ratio 11.5 (10.0-20.0) Serum Glucose 94 mg/dL (74-106) Calcium Level 8.2 mg/dL (8.7-10.4) Lactic Acid Level 1.4 mmol/L (0.4-2.0) Urine Color Light-yellow (Yellow) Urine Clarity Clear (Clear) Urine pH 5.5 (5.0-9.0) Urine Specific [place] 1.014 (1.001-1.035) Urine Protein Trace (Negative) Urine Ketones Negative (Negative) Urine Blood Negative /uL (Negative) Urine Nitrite Negative (Negative) Urine Bilirubin Negative (Negative) Urine Urobilinogen Normal mg/dL (Negative) Urine Leukocyte Esterase Negative /uL (Negative) Urine RBC <1 /hpf (0 - 3) Urine Microscopic WBC 4 /HPF (0-3) Urine Squamous Epithelial Cells Few /hpf (<5) Urine Bacteria Few /hpf (None Seen) Urine Hyaline Casts Mod /lpf (0 - 2) Urine Mucus Few (None Seen) Urine Glucose Normal mg/dL (Normal) Urine Opiates Screen Neg (NEGATIVE) Urine Fentanyl Screen Neg (NEGATIVE) Urine Barbiturates Screen Neg (NEGATIVE) Urine Phencyclidine Screen Neg (NEGATIVE) Urine Amphetamines Screen Neg (NEGATIVE) Urine Benzodiazepines Screen Neg (NEGATIVE) Urine Cocaine Screen Neg (NEGATIVE) Urine Cannabinoids Screen Neg (NEGATIVE) Troponin I High Sensitivity 3 ng/L (</=54) Other Laboratory Tests 03/05/25 04:42 Brief Hx & Hospital Course: 60 yo M with hx of gout, CKD 3a, hemorrhagic stroke, HTN, HLD BIBEMS after LOC on [facility] center after donating plasma, compliant with meds. noticed to have seizure like activity after syncope. Patient was found to be hypotensive and have lactate of 2.4. Patient received 1L and improved. Now asymptomatic. Patient was worried about his car in the plasma center and would like to be discharged. discussed with patient, his syncope is most likely orthostatic due to his plasma donation, but to be fully evaluated will need to stay. Patient expressed understanding and would like to be discharged, and also have a PCP appointment in 03/11. Physical exam within normal limits except morbidly obese patient. Neuro exam normal, no tongue biting or incontinent, seizure likely related to convulsive syncope. Discharged home. Condition at Discharge: Stable Final Diagnosis/Problems List orthostatic syncope convulsive syncope ckd 3a stable hx of hemorrhagic stroke 20 years ago HTN HLD diverticulosis Discharge Disposition: Home Discharge Instruct/Medications Medications: hold lisinopril and amlodipine for today, start tomorrow Scheduled Acetaminophen (Tylenol Extra Strength Fo), 1,000 MG PO BID Allopurinol (Allopurinol), 1 TAB PO DAILY, (Reported) Amlodipine Besylate (Amlodipine Besylate), 1 TAB PO DAILY, (Reported) Atorvastatin Calcium (Atorvastatin Calcium), 1 TAB PO DAILY, (Reported) Cephalexin Monohydrate (Cephalexin), 2 CAP PO BID Ezetimibe (Ezetimibe), 1 TAB PO DAILY, (Reported) Lisinopril (Lisinopril), 1 TAB PO DAILY, (Reported) [place]-3 Fatty Acids (Fish Oil), 1,000 MG PO DAILY, (Reported) Discharge Statement: "Patient was advised to return to the ER or call 911 if any headaches, dizziness, shortness of breath, chest pain, abdominal pain, bleeding, fevers, or worsening of medical condition. Patient was counseled about treatment plan, medications, possible side effects, patientverbalized understanding. All questions were answered to the best of my ability. This discharge took greater then 30 minutes in planning, reviewing documentation, counseling the patient, and discussing with other team members." ASSESSMENT ASSESSMENT Assessment Date of Service: Mar 05, 2025 Billing Provider: CLOVIS MANCINI MD Common Visit Codes: 39367-TXM/OBS DISCH DAY >30min CLOVIS MANCINI MD Mar 05, 2025 11:00
== END 2025-03-05 19:25 | disposition home or self-care (01) | DRG 204 ==
LOC: EDBD 14:48 → ER 14:48 → OVERFLOW 19:44 → TELE-WESTW 21:19
PROVIDERS: ADMIT Student in an Organized Health Care Education/Training Program; ATTEND Student in an Organized Health Care Education/Training Program
DX: I95.1 Orthostatic hypotension (principal); E87.20 Acidosis, unspecified; R56.9 Unspecified convulsions; E66.01 Morbid (severe) obesity due to excess calories; N18.31 Chronic kidney disease, stage 3a; I12.9 Hypertensive chronic kidney disease with stage 1 through stage 4 chronic kidney disease, or unspecified chronic kidney disease; E78.5 Hyperlipidemia, unspecified; K57.30 Diverticulosis of large intestine without perforation or abscess without bleeding; Z96.651 Presence of right artificial knee joint; M10.9 Gout, unspecified; Z86.73 Personal history of transient ischemic attack (TIA), and cerebral infarction without residual deficits; Z68.41 Body mass index [BMI] 40.0-44.9, adult
CPT/HCPCS: 36415; 74176; 80048; 80307; 81001; 83605; 84484; 85025; 93005; 93886; 96360; G0378